=== PATIENT | female | born 1975 | race Caucasian/White ===

== ENCOUNTER 2021-01-01 23:25 | Emergency (ER) | payer BC ==
[2021-01-02] MEDS ORDERED: NA CHLORIDE 0.9% 500 ML ONE (00:25)
[2021-01-02] MEDS ORDERED: dexAMETHasone 10 MG/ML VIAL ONE (00:25)
[2021-01-02] MEDS ORDERED: LEVALBUTEROL 1.25 MG/3 ML NEB ONE (00:25)
[2021-01-02 00:38] LABS: Potassium 3.4 mmol/L (3.5-5.1)
[2021-01-02 00:40] LABS: Absolute Lymphocytes (CBC) 0.9 K/uL (0.7-4.9); Basophils % 0.7 % (0-1.3); Hematocrit 36.4 % (36.0-45.0); Lymphocytes % 31.3 % (15.3-44.8); MPV 9.7 fL (7.6-11.3); RBC Red Blood Cell Count 4.99 M/uL (3.86-4.86)
--- NOTE | 2021-01-02 00:53 | ER ---
Nurse's Notes [facility] Name: Giselle Chaudhari Age: 45 yrs Sex: Female : 1975 Arrival Date: 01/01/2021 Time: 23:32 Bed 13 Private MD: Diagnosis: Coronavirus infection, unspecified Presentation: 01/01 23:37 Chief complaint: Patient states: Im covid positive, Im just not feeling any better, sg having some shortness of breath that is worsening this evening. Coronavirus screen: Client presents with at least one sign or symptom that may indicate coronavirus-19. Standard/surgical mask placed on the client. Provider contacted for isolation considerations. Client reports previous positive COVID test result. Ebola Screen: Patient negative for fever greater than or equal to 101.5 degrees Fahrenheit, and additional compatible Ebola Virus Disease symptoms Patient denies exposure to infectious person. Patient denies travel to an Ebola-affected area in the 21 days before illness onset. No symptoms or risks identified at this time. Initial Sepsis Screen: Does the patient meet any 2 criteria? No. Patient's initial sepsis screen is negative. Does the patient have a suspected source of infection? No. Patient's initial sepsis screen is negative. Risk Assessment: Do you want to hurt yourself or someone else? Patient reports no desire to harm self or others. Onset of symptoms was January 01, 2021. Care prior to arrival: None. Transition of care: patient was not received from another setting of care. 23:37 Acuity: CARRIE 4 sg 23:37 Method Of Arrival: Ambulatory sg 23:51 Acuity: CARRIE 3 em EDUCATION REPORTER: 23:39 [facility] 12/04/2020 em Historical: - Allergies: 23:39 No Known Allergies; sg - PMHx: 23:39 None; sg - Immunization history:: Adult Immunizations not up to date. - Social history:: Smoking status: Patient reports the use of cigarette tobacco products. Screenin:40 Abuse screen: Denies threats or abuse. Nutritional screening: No deficits noted. em Tuberculosis screening: No symptoms or risk factors identified. Fall Risk None identified. Assessment: 23:39 General: Appears in no apparent distress. comfortable, Behavior is calm, cooperative, em appropriate for age, Reports fever for 1-2 days, feeling ill for 1-2 days, fatigue for 1-2 days. Pain: Denies pain. Neuro: Level of Consciousness is awake, alert, obeys commands, Oriented to person, place, time, situation. Cardiovascular: Denies chest pain, Capillary refill < 3 seconds Patient's skin is warm and dry. Rhythm is regular. Respiratory: Reports shortness of breath Airway is patent Respiratory effort is even, unlabored, Respiratory pattern is regular, symmetrical, Breath sounds are clear Denies cough. GI: Abdomen is round non-distended, Reports nausea, vomiting. Derm: Skin is intact, is healthy with good turgor, Skin is pink, warm \T\ dry. Musculoskeletal: Capillary refill < 3 seconds, Range of motion: intact in all extremities. 01/02 01:00 Reassessment: Patient appears in no apparent distress at this time. Patient and/or em family updated on plan of care and expected duration. Pain level reassessed. Patient is alert, oriented x 3, equal unlabored respirations, skin warm/dry/pink. Vital Signs: 01/01 23:39 BP 132 / 91; Pulse 96; Resp 20; Temp 97.8; Pulse Ox 96% on R/A; Weight 86.18 kg; Height em 5 ft. 4 in. (162.56 cm); Pain 0/10; 23:39 Body Mass Index 32.61 (86.18 kg, 162.56 cm) em ED Course: 23:32 Patient arrived in ED. am4 23:34 Denys Carl, RN is Primary Nurse. em 23:39 Triage completed. sg 23:40 Arm band placed on. sg 23:40 Patient has correct armband on for positive identification. Placed in gown. Bed in low em position. Call light in reach. Adult w/ patient. Pulse ox on. NIBP on. 23:44 Robert Pfeiffer PA is PHCP. [facility] 23:44 Shan Stern MD is Attending Physician. [facility] 01/02 00:00 Initial lab(s) drawn, by me, sent to lab. Inserted saline lock: 22 gauge in right em antecubital area, using aseptic technique. Blood collected. 00:23 Chest Single View XRAY In Process Unspecified. EDMS 01:08 No provider procedures requiring assistance completed. IV discontinued, intact, em bleeding controlled, No redness/swelling at site. Pressure dressing applied. Administered Medications: 00:12 Drug: Decadron - Dexamethasone 10 mg Route: IVP; Site: right antecubital; em 00:12 Drug: Xopenex (3) 1.25 mg Route: Inhalation; em 00:13 Drug: NS 0.9% 500 ml Route: IV; Rate: bolus; Site: right antecubital; em Outcome: 00:52 Discharge ordered by . carolynn 01:08 Discharged to home ambulatory. em 01:08 Condition: good 01:08 Discharge instructions given to patient, Instructed on discharge instructions, follow up and referral plans. medication usage, Demonstrated understanding of instructions, follow-up care, medications, Prescriptions given X 3. 01:12 Patient left the ED. em Signatures: Dispatcher [employer] Mic Martínez RN RN Robert Huerta PA PA jmm Munoz, Edgar, RN RN em Martinez, Ashley 4
--- NOTE | 2021-01-02 00:53 | EDPHYS ---
Physician Documentation [facility] Name: Giselle Chaudhari Age: 45 yrs Sex: Female : 1975 Arrival Date: 01/01/2021 Time: 23:32 Bed 13 Private MD: ANALILIA Physician Shan Stern HPI: 01/02 00:48 This 45 yrs old Female presents to ER via Ambulatory with complaints of jmm COVID+, Shortness Of Breath. 00:48 Onset: The symptoms/episode began/occurred gradually, 6 day(s) ago. Associated signs jmm and symptoms: Pertinent positives: shortness of breath. Modifying factors: The patient symptoms are alleviated by nothing, the patient symptoms are aggravated by lying down. The patient has not experienced similar symptoms in the past. Patient developed symptoms of covid 6 days ago and tested positive 2 days later. . 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 - Social history:: Smoking status: Patient reports the use of cigarette tobacco products. ROS: 01/02 00:48 Neck: Negative for injury, pain, and swelling, Respiratory: Negative for shortness of jmm breath, cough, wheezing, and pleuritic chest pain. Constitutional: Positive for body aches, chills. Respiratory: Positive for cough, orthopnea, shortness of breath. All other systems are negative. Exam: 00:48 Constitutional: This is a well developed, well nourished patient who is awake, alert, jmm and in no acute distress. Head/Face: atraumatic. Eyes: EOMI, no conjunctival erythema appreciated ENT: Moist Mucus Membranes Neck: Trachea midline, Supple Chest/axilla: Normal chest wall appearance and motion. Cardiovascular: Regular rate and rhythm. No edema appreciated Respiratory: Normal respirations, no respiratory distress appreciated Abdomen/GI: Non distended, soft Back: Normal ROM Skin: General appearance color normal MS/ Extremity: Moves all extremities, no obvious deformities appreciated, no edema noted to the lower extremities Neuro: Awake and alert, normal gait Psych: Behavior is normal, Mood is normal, Patient is cooperative and pleasant Vital Signs: 01/01 23:39 BP 132 / 91; Pulse 96; Resp 20; Temp 97.8; Pulse Ox 96% on R/A; Weight 86.18 kg; Height em 5 ft. 4 in. (162.56 cm); Pain 0/10; 23:39 Body Mass Index 32.61 (86.18 kg, 162.56 cm) em MDM: 23:45 Patient medically screened. [facility] 01/02 00:51 Data reviewed: vital signs, nurses notes. Counseling: I had a detailed discussion with [facility] the patient and/or guardian regarding: the historical points, exam findings, and any diagnostic results supporting the discharge/admit diagnosis, lab results, radiology results, the need for outpatient follow up, to return to the emergency department if symptoms worsen or persist or if there are any questions or concerns that arise at home. ED course: Patient is alert and non toxic in appearance in the ED. No signs of resp distress. Advised to follow up with pcp and otherwise given strict return precautions. Patient understood and agrees with the plan of care. . 01/01 23:53 Order name: CBC with Diff; Complete Time: 00:45 [facility] 01/01 23:53 Order name: BMP; Complete Time: 00:45 [facility] 01/01 23:52 Order name: Chest Single View XRAY [facility] 01/01 23:53 Order name: D-Dimer; Complete Time: 00:45 [facility] 01/01 23:53 Order name: Saline Lock; Complete Time: 00:06 [facility] Administered Medications: 00:12 Drug: Decadron - Dexamethasone 10 mg Route: IVP; Site: right antecubital; em 00:12 Drug: Xopenex (3) 1.25 mg Route: Inhalation; em 00:13 Drug: NS 0.9% 500 ml Route: IV; Rate: bolus; Site: right antecubital; em Disposition: 06:32 Co-signature as Attending Physician, Shan Stern MD I agree with the assessment and [facility] plan of care. Disposition: 01/02/21 00:52 Discharged to Home. Impression: Coronavirus infection, unspecified. - Condition is Stable. - Discharge Instructions: COVID-19. - Prescriptions for ivermectin 3 mg Oral tablet - take 6 tablet by ORAL route as directed one dose on day one and day three; 12 tablet. Prednisone 20 mg Oral Tablet - take 3 tablet by ORAL route once daily for 5 days; 15 tablet. Albuterol Sulfate 90 mcg/actuation - inhale 1-2 puff by INHALATION route every 4-6 hours; 1 Inhaler. - Medication Reconciliation Form, Thank You Letter, Antibiotic Education, Prescription Opioid Use form. - Follow up: Private Physician; When: 2 - 3 days; Reason: Recheck today's complaints, Continuance of care, Re-evaluation by your physician. - Notes: Please take 10,000 IU of vitamin D Daily, 1000 MG of NAC (N-Acetyl Cysteine)three times a day Signatures: Dispatcher [employer] EDMic Roman, ABHI RN Shan Kidd MD MD cha Mickail, Joel, PA PA jmm Munoz, Edgar, ABHI RN em Corrections: (The following items were deleted from the chart) 01:12 00:52 01/02/2021 00:52 Discharged to Home. Impression: Coronavirus infection, em unspecified. Condition is Stable. Forms are Medication Reconciliation Form, Thank You Letter, Antibiotic Education, Prescription Opioid Use. Follow up: Private Physician; When: 2 - 3 days; Reason: Recheck today's complaints, Continuance of care, Re-evaluation by your physician. carolynn
[2021-01-02 02:19] VITALS: BP 132/91; TEMP 97.8; O2SAT 96
--- NOTE | 2021-01-02 08:45 | RAD REPORT ---
EXAM DESCRIPTION: RAD - Chest Single View - 01/02/2021 12:23 am CLINICAL HISTORY Sob COMPARISON: None. FINDINGS: Single frontal radiograph view of the chest. Cardiomediastinal silhouette: Normal size and contour. Lungs: No consolidation, pneumothorax, or pleural effusion. Bones: No acute osseous abnormality. Low lung volumes. Upper abdomen: No abnormality identified. IMPRESSION: 1. No acute pulmonary process identified. 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 The interpreting radiologist is fully responsible for the content of the report.
== END 2021-01-02 01:12 | disposition home or self-care (01) ==
LOC: ER 23:25
DX: U07.1 COVID-19 (principal); F17.210 Nicotine dependence, cigarettes, uncomplicated
CPT/HCPCS: 85025; 80048; 36415; 85379; 71045; 96374; 99284; J1100; J7040

== ENCOUNTER 2021-01-03 15:08 | Emergency (ER) | payer BC ==
[2021-01-03 17:12] LABS: Basophils % 0.5 % (0-1.3); Hematocrit 35.2 % (36.0-45.0); Lymphocytes % 18.3 % (15.3-44.8); MPV 8.8 fL (7.6-11.3); RBC Red Blood Cell Count 4.89 M/uL (3.86-4.86)
[2021-01-03 17:25] LABS: Magnesium 2.1 mg/dL (1.8-2.4); Potassium 3.2 mmol/L (3.5-5.1)
[2021-01-03] MEDS ORDERED: DIAZEPAM 10 MG/2 ML INJ SYRINGE ONE ×3 (17:26→20:50)
--- NOTE | 2021-01-03 18:40 | RAD REPORT ---
EXAM DESCRIPTION: Gene Single View01/03/2021 6:01 pm CLINICAL HISTORY: sob COMPARISON: none FINDINGS: The lungs appear clear of acute infiltrate. The heart is normal size IMPRESSION: No acute abnormalities displayed
[2021-01-03] MEDS ORDERED: POTASSIUM CL SA 10 MEQ TAB PO ONE (19:48)
--- NOTE | 2021-01-03 20:39 | EDPHYS ---
Physician Documentation [facility] Name: Giselle Chaudhari Age: 45 yrs Sex: Female : 1975 Arrival Date: 01/03/2021 Time: 15:10 Bed 7 Private MD: Lonnie Garcia ED Physician Francesco Lozano HPI: 01/03 17:13 This 45 yrs old Female presents to ER via Ambulatory with complaints of jr8 Breathing Difficulty, spasms. 20:32 Patient stated that she was recently diagnosed with covid and sent home on medications. jr8 Today started to have what feels like upper abdominal, chest, and neck spasms. Denies cough or hiccups. Severity of symptoms: At their worst the symptoms were moderate in the emergency department the symptoms are unchanged. The patient has not experienced similar symptoms in the past. The patient has been recently seen by a physician:. Historical: - Allergies: 15:22 No Known Allergies; ll1 - PMHx: 15:22 None; ll1 - PSHx: 15:22 ; ll1 - Immunization history:: Flu vaccine is not up to date. - Social history:: Smoking status: Patient denies any tobacco usage or history of. ROS: 20:32 Eyes: Negative for injury, pain, redness, and discharge, ENT: Negative for injury, jr8 pain, and discharge, Neck: Negative for injury, pain, and swelling, Cardiovascular: Negative for chest pain, palpitations, and edema, Respiratory: Negative for shortness of breath, cough, wheezing, and pleuritic chest pain, Abdomen/GI: Negative for abdominal pain, nausea, vomiting, diarrhea, and constipation, Back: Negative for injury and pain, MS/Extremity: Negative for injury and deformity, Skin: Negative for injury, rash, and discoloration, Neuro: Negative for headache, weakness, numbness, tingling, and seizure. Exam: 20:32 Constitutional: This is a well developed, well nourished patient who is awake, alert, jr8 and in no acute distress. Cardiovascular: Regular rate and rhythm with a normal S1 and S2. No gallops, murmurs, or rubs. Normal PMI, no JVD. No pulse deficits. Respiratory: Lungs have equal breath sounds bilaterally, clear to auscultation and percussion. No rales, rhonchi or wheezes noted. No increased work of breathing, no retractions or nasal flaring. Abdomen/GI: Soft, non-tender, with normal bowel sounds. No distension or tympany. No guarding or rebound. No evidence of tenderness throughout. Back: No spinal tenderness. No costovertebral tenderness. Full range of motion. Skin: Warm, dry with normal turgor. Normal color with no rashes, no lesions, and no evidence of cellulitis. MS/ Extremity: Pulses equal, no cyanosis. Neurovascular intact. Full, normal range of motion. Neuro: Awake and alert, GCS 15, oriented to person, place, time, and situation. Cranial nerves II-XII grossly intact. Motor strength 5/5 in all extremities. Sensory grossly intact. Cerebellar exam normal. Normal gait. Vital Signs: 15:18 BP 123 / 85; Pulse 120; Resp 17; Temp 99.6; Pulse Ox 97% on R/A; Weight 86.18 kg; ll1 Height 5 ft. 4 in. (162.56 cm); Pain 3/10; 16:55 Pulse 109; Pulse Ox 98% on R/A; ss 19:00 BP 121 / 86; Pulse 91; Resp 18; Pulse Ox 98% on R/A; rv 20:00 BP 115 / 79; Pulse 93; Resp 18; Pulse Ox 96% on R/A; rv 20:35 BP 117 / 89; Pulse 93; Resp 16; Pulse Ox 97% on R/A; rv 15:18 Body Mass Index 32.61 (86.18 kg, 162.56 cm) ll1 MDM: 17:03 Patient medically screened. jr8 20:32 Data reviewed: vital signs, nurses notes, lab test result(s), radiologic studies, plain jr8 films. Data interpreted: Pulse oximetry: on room air is 98 %. Interpretation: normal. Counseling: I had a detailed discussion with the patient and/or guardian regarding: the historical points, exam findings, and any diagnostic results supporting the discharge/admit diagnosis, lab results, radiology results, the need for outpatient follow up, a family practitioner, to return to the emergency department if symptoms worsen or persist or if there are any questions or concerns that arise at home. ED course: Patient doing much better with the valium. Still not completely gone but markedly improved. Will send her home on limited supply of this. Told her to stop all medications except her vitamins on the off side chance this is side effect of one of them and that clinically she does not need those meds at this time for her COVID symptoms. Patient good with this and will f/u. Knows to come back if worse or something were to change . 01/03 16:56 Order name: CBC with Diff [facility] 01/03 16:56 Order name: Basic Metabolic Panel [facility] 01/03 16:56 Order name: Magnesium [facility] 01/03 16:56 Order name: CBC with Automated Diff; Complete Time: 18:09 EDMS 01/03 16:56 Order name: Basic Metabolic Panel; Complete Time: 18:09 EDMS 01/03 17:25 Order name: Magnesium; Complete Time: 18:09 EDMS 01/03 16:56 Order name: IV; Complete Time: 17:06 [facility] 01/03 16:56 Order name: XRAY Chest (1 view) [facility] 01/03 18:41 Order name: RAD; Complete Time: 19:12 EDMS Administered Medications: 17:15 Drug: Valium 2 mg Route: IVP; Site: left upper arm; ss 18:30 Follow up: Response: No adverse reaction; Pain is decreased ss 19:35 Drug: Potassium Chloride 40 mEq Route: PO; rv 20:36 Follow up: Response: No adverse reaction rv 19:35 Drug: Valium 5 mg Route: IVP; Site: left upper arm; rv 20:36 Follow up: Response: No adverse reaction; Marked relief of symptoms rv 20:36 Drug: Valium 5 mg Route: IVP; Site: left antecubital; rv Disposition: 01/04 07:22 Co-signature as Attending Physician, Francesco Lozano MD I agree with the assessment and kdr plan of care. Disposition: 01/03/21 20:37 Discharged to Home. Impression: Muscle spasm. - Condition is Stable. - Discharge Instructions: Muscle Cramps and Spasms. - Prescriptions for Valium 5 mg Oral Tablet - take 1 tablet by ORAL route every 8 hours As needed; 20 tablet. - Medication Reconciliation Form, Thank You Letter, Antibiotic Education, Prescription Opioid Use form. - Follow up: Lonnie Garcia MD; When: 2 - 3 days; Reason: Recheck today's complaints, Continuance of care, Re-evaluation by your physician. - Problem is new. - Symptoms have improved. Signatures: Dispatcher [employer] EDMS Francesco Lozano MD MD kdr Smirch, Shelby, RN RN Kiel Bosch PA PA jr8 Enoch Chanel RN RN rv Alpesh Flanagan RN RN ll1 Corrections: (The following items were deleted from the chart) 01/03 20:51 20:37 01/03/2021 20:37 Discharged to Home. Impression: Muscle spasm. Condition is rv Stable. Forms are Medication Reconciliation Form, Thank You Letter, Antibiotic Education, Prescription Opioid Use. Follow up: Lonnie Garcia; When: 2 - 3 days; Reason: Recheck today's complaints, Continuance of care, Re-evaluation by your physician. Problem is new. Symptoms have improved. jr8
--- NOTE | 2021-01-03 20:39 | ER ---
Nurse's Notes [facility] Name: Giselle Chaudhari Age: 45 yrs Sex: Female : 1975 Arrival Date: 01/03/2021 Time: 15:10 Bed 7 Private MD: Lonnie Garcia Diagnosis: Muscle spasm Presentation: 01/03 15:18 Chief complaint: Patient states: Here Friday night for SOB, breathing difficulty. ll1 Started having bronchial spasms Friday, worse with coughing/talking. Covid positive since 12/30. Coronavirus screen: Client denies travel out of the [place] in the last 14 days. cough unrelated to allergies, difficulty breathing, Client presents with at least one sign or symptom that may indicate coronavirus-19. Standard/surgical mask placed on the client. Ebola Screen: Patient denies travel to an Ebola-affected area in the 21 days before illness onset. Initial Sepsis Screen: Does the patient meet any 2 criteria? HR > 90 bpm. No. Patient's initial sepsis screen is negative. Does the patient have a suspected source of infection? Yes: Productive cough/pneumonia. Risk Assessment: Do you want to hurt yourself or someone else? Patient reports no desire to harm self or others. Onset of symptoms was December 28, 2020. 15:18 Method Of Arrival: Ambulatory [facility] 15:18 Acuity: CARRIE 3 ll1 Triage Assessment: 20:35 General: Appears comfortable. Respiratory: the patient has mild shortness of breath. rv Historical: - Allergies: 15:22 No Known Allergies; ll1 - PMHx: 15:22 None; ll1 - PSHx: 15:22 ; ll1 - Immunization history:: Flu vaccine is not up to date. - Social history:: Smoking status: Patient denies any tobacco usage or history of. Screenin:55 Abuse screen: Denies threats or abuse. Denies injuries from another. Nutritional ss screening: No deficits noted. Tuberculosis screening: Never had TB. Fall Risk None identified. Assessment: 16:55 General: Appears uncomfortable, Behavior is calm, cooperative, Reports feeling ill for ss 2-3 days. Pain: Complains of pain in abdomen Pain currently is 3 out of 10 on a pain scale. Quality of pain is described as "sore, like I've been working out." Pain began 2-3 days ago. Is continuous. Neuro: Level of Consciousness is awake, alert, obeys commands, Oriented to person, place, time, situation, Magistrate Judge are equal bilaterally Facial symmetry appears normal. Cardiovascular: Capillary refill < 3 seconds is brisk in bilateral fingers Patient's skin is warm and dry. Rhythm is sinus tachycardia. Respiratory: Reports When talking, patient reports "spasms" that causes her to grunt and do a crunch with her abd muscles. Airway is patent Respiratory effort is even, unlabored, Respiratory pattern is regular, symmetrical, Breath sounds are clear bilaterally. GI: No signs and/or symptoms were reported involving the gastrointestinal system. Patient currently denies diarrhea, intolerance of food, vomiting. : No signs and/or symptoms were reported regarding the genitourinary system. EENT: Nares are clear. Derm: Skin is intact, is healthy with good turgor, Skin is dry, Skin is pink, warm \\T\\ dry. normal. Musculoskeletal: Circulation, motion, and sensation intact. Range of motion: intact in all extremities, Swelling absent. 17:55 Reassessment: Patient appears in no apparent distress at this time. No changes from ss previously documented assessment. 18:55 Reassessment: Patient appears in no apparent distress at this time. No changes from ss previously documented assessment. Patient is alert, oriented x 3, equal unlabored respirations, skin warm/dry/pink. Vital Signs: 15:18 BP 123 / 85; Pulse 120; Resp 17; Temp 99.6; Pulse Ox 97% on R/A; Weight 86.18 kg; ll1 Height 5 ft. 4 in. (162.56 cm); Pain 3/10; 16:55 Pulse 109; Pulse Ox 98% on R/A; ss 19:00 BP 121 / 86; Pulse 91; Resp 18; Pulse Ox 98% on R/A; rv 20:00 BP 115 / 79; Pulse 93; Resp 18; Pulse Ox 96% on R/A; rv 20:35 BP 117 / 89; Pulse 93; Resp 16; Pulse Ox 97% on R/A; rv 15:18 Body Mass Index 32.61 (86.18 kg, 162.56 cm) ll1 ED Course: 15:10 Patient arrived in ED. am2 15:10 Lonnie Garcia MD is Private Physician. am2 15:21 Triage completed. ll1 15:22 Arm band placed on. ll1 16:43 [facility]. jr8 16:43 Francesco Lozano MD is Attending Physician. jr8 16:44 Emmy Bustamante, ABHI is Primary Nurse. ss 16:55 Patient has correct armband on for positive identification. Bed in low position. Call ss light in reach. Side rails up X 1. 16:55 Patient maintains SpO2 saturation greater than 95% on room air. ss 17:06 Inserted saline lock: 20 gauge in left upper arm, using aseptic technique. Blood ss collected. 18:17 Magnesium Sent. sv 18:17 Basic Metabolic Panel Sent. sv 18:17 CBC with Diff Sent. sv 20:35 No provider procedures requiring assistance completed. rv 20:37 Lonnie Garcia MD is Referral Physician. jr8 20:49 IV discontinued, intact, bleeding controlled, No redness/swelling at site. Pressure rv dressing applied. Administered Medications: 17:15 Drug: Valium 2 mg Route: IVP; Site: left upper arm; ss 18:30 Follow up: Response: No adverse reaction; Pain is decreased ss 19:35 Drug: Potassium Chloride 40 mEq Route: PO; rv 20:36 Follow up: Response: No adverse reaction rv 19:35 Drug: Valium 5 mg Route: IVP; Site: left upper arm; rv 20:36 Follow up: Response: No adverse reaction; Marked relief of symptoms rv 20:36 Drug: Valium 5 mg Route: IVP; Site: left antecubital; rv Outcome: 20:37 Discharge ordered by . jr8 20:49 Discharged to home via wheelchair. rv 20:49 Condition: improved 20:49 Discharge instructions given to patient, Instructed on discharge instructions, follow up and referral plans. medication usage, Demonstrated understanding of instructions, follow-up care, medications, Prescriptions given X 1. 20:51 Patient left the ED. rv Signatures: Tanya Cristina RN RN Emmy Bustamante, ABHI RN Kiel Spann PA PA jr8 Ellen Smith am2 Enoch Chanel RN RN rv Alpesh Flanagan RN RN ll1
[2021-01-04 10:24] VITALS: BP 117/89; TEMP 99.6; O2SAT 97
== END 2021-01-03 20:51 | disposition home or self-care (01) ==
LOC: ER 15:08
DX: M62.838 Other muscle spasm (principal); Z86.16 Personal history of COVID-19
CPT/HCPCS: 85025; 80048; 36415; 83735; 71045; 99285; J3360 ×3

== ENCOUNTER 2021-03-20 09:50 | Day surgery (SDC) | payer BC ==
[2021-03-15 10:22] LABS: Absolute Lymphocytes (CBC) 1.3 K/uL (0.7-4.9); Basophils % 0.9 % (0-1.3); Hematocrit 39.7 % (36.0-45.0); Lymphocytes % 26.1 % (15.3-44.8); MPV 9.2 fL (7.6-11.3); RBC Red Blood Cell Count 5.26 M/uL (3.86-4.86)
[2021-03-15 10:35] LABS: Urine Appearance CLEAR (Clear); Urine Bilirubin NEGATIVE (Negataive); Urine Blood TRACE (Negative); Urine Color YELLOW (Yellow); Urine Glucose NEGATIVE (Negative); Urine Protein NEGATIVE (Negative); Urine Specific Gravity 1.025 (1.005-1.030); Urine Urobilinogen 0.2 mg/dL (0.2-1.0); Urine pH 5.5 (5.0-7.0)
[2021-03-15 10:51] LABS: Urine Microscopic Reflex ORDER UMIC
[2021-03-15 10:52] LABS: Urine Bacteria NONE SEEN /HPF (<20); Urine Mucus MOD /HPF (NONE SEEN); Urine RBC <5 /HPF (NONE SEEN)
[2021-03-20] MEDS ORDERED: Ringers Lactate 1,000 ML IV ONE ×2 (10:27→14:36)
[2021-03-20] MEDS ORDERED: SCOPOLAMINE HYDROBROMIDE PATCH TD ONE (10:27)
[2021-03-20] MEDS ORDERED: MIDAZOLAM HCL 2 MG/2 ML INJ ONE (12:59)
[2021-03-20] MEDS ORDERED: propofoL 200 MG/20 ML VIAL IV ONE (13:00)
[2021-03-20] MEDS ORDERED: LIDOCAINE 2% MPF 5 ML VIAL ONE (13:00)
[2021-03-20] MEDS ORDERED: ROCURONIUM 50 MG/5 ML VIAL IV ONE (13:00)
[2021-03-20] MEDS ORDERED: FENTANYL CITR 100 MCG/2 ML ONE ×2 (13:00→14:35)
[2021-03-20] MEDS ORDERED: ONDANSETRON 4 MG/2 ML VIAL ONE (13:04)
[2021-03-20] MEDS ORDERED: BUPIVACAINE 0.25% PF 30 ML VIAL ONE (13:17)
[2021-03-20] MEDS ORDERED: dexAMETHasone 10 MG/ML VIAL ONE (13:19)
[2021-03-20] MEDS: CEFAZOLIN/SWI 1gm 2 GM/20 ML SYR ONE ×3 (13:20→13:50)
[2021-03-20] MEDS ORDERED: KETOROLAC 30 MG/ML INJ ONE (14:21)
[2021-03-20] MEDS ORDERED: NA CHLORIDE 0.9% 1,000 ML ONE (14:37)
[2021-03-20] MEDS: MEPERIDINE HCL 25 MG/ML SYR ONE ×2 (15:59→16:04)
[2021-03-20] MEDS: HYDROMORPHONE HCL 1 MG/ML INJ ONE ×2 (16:08→16:13)
[2021-03-20] MEDS ORDERED: IBUPROFEN 200 MG TAB PO ONE (17:05)
[2021-03-20 17:44] VITALS: BP 122/60; TEMP 97; O2SAT 97
--- NOTE | 2021-03-20 23:05 | OP ---
Date of Procedure: 03/20/2021 Surgeon: Emilee Sanches MD Network Architect: Yanni Landrum. Preoperative Diagnoses: Menorrhagia, anemia and dysmenorrhea. Postoperative Diagnoses: Menorrhagia, anemia and dysmenorrhea and endometriosis, right ovarian corrie s small, possible fibroma. Procedures Performed: 1.Diagnostic hysteroscopy, endometrial ablation with NovaSure. 2.Diagnostic laparoscopy, bilateral salpingectomy. 3.Laparoscopy, endometriosis excision, 1 implant fulgurated. 4.Right ovarian masses excision for biopsy, most likely ovarian fibroma. Anesthesia: General endotracheal. Estimated Blood Loss: Minimal. Complications: No complications. Drains: No drains. Condition: Stable. Specimens: Bilateral tubes, endometriosis from right lateral wall and right ovarian biopsies, which are possible fibroma of the ovary. Ablation was done without any problems. Her cavity length was 5 cm, cavity width 3.8 cm, power setti ng 105 pelletier, time of ablation 1 minute and 14 seconds. Excellent ablation effect in the global endo metrial cavity. Endometriosis found in the right lateral wall between the ureter and the uterosacral ligament, and then on the left side, 1 implant in the lateral wall. On the superficial ovarian caps ule, there were 2 firm masses that were consistent with fibromatous change, most likely fibroma, so, biopsies were taken by excising them. No other abnormalities were noted on the appendix, liver, diaphragm, other peritoneal surfaces, oment um. Indications: The patient is a 45-year-old female who presented with significant bleeding, anemia, mo st likely from menorrhagia. Her endometrial ultrasound and sampling were performed. Endometrium neg ative for atypia or malignancy. So, she was offered the options of an endometrial ablation. The alt ernatives were medical therapy using a depot medroxyprogesterone or an IUD. The patient wanted to pr oceed with an ablation and removal of her tubes. She also has significant dysmenorrhea and evaluatin g possibility of endometriosis was discussed and excision of endometriosis at the same time. All the se were reviewed with the patient. She was consented in the preoperative area and consent was re-louis ified. Questions and answers were done to the satisfaction of the patient and her . Procedure In Detail: She was then brought to the operating room. 2 g of Ancef were given. She was placed in a supine fashion. General anesthesia was given. Placed in dorsal lithotomy position after that and pelvic exam was performed. Abdomen, vulva, vagina, and perineum were prepped and draped in a sterile fashion. Jean was placed to drain the bladder. Speculum was placed to expose the cervix . Anterior lip was grasped with 2 Allis clamps. Diagnostic SlimLine hysteroscope was introduced int o the uterine cavity and direct measurements of the cervix and the uterine cavity were conducted. Th lili settings were entered into the NovaSure generator. Then, ablation was done after priming the dev ice and deploying the device into the uterine cavity and deploying the fan. Occlusion was done with the occluder, passed the cavity integrity test, went on to an ablation cycle uninterrupted 1 minute a nd 14 seconds, settings as above. Device was un-deployed in the usual fashion and removed. SlimLine hysteroscope was introduced into the uterine cavity and we verified excellent ablation effect in the global endometrial cavity. Scope was pulled out. Diagnostic VCare was introduced into the uterus f or uterine manipulation and this area was draped. A 1 cm infraumbilical incision was made on the ski n in a semilunar fashion along the infraumbilical fold. Then, incision was made with an 11 blade. S ubcutaneous tissues were dissected and umbilical hernia was found. Here the umbilical hernia sac was reduced into the peritoneal cavity. There was preperitoneal fat and no other contents. Then, the f ascia was dissected identifying all the edges. Incision in the fascial plane was followed up to find all the edges, and then 0 Vicryl sutures were used to tag the edges on both sides and subcutaneous t issues were dissected away from the fascia exposing the edges very well. Once this was done, periton eal cavity was already exposed. S retractors introduced. Adequate insufflation was done. Then site of entry was checked, unremarkable. Upper abdominal surfaces, liver, gallbladder, diaphragm, omentu m, all without any implants of endometriosis. Patient was placed in Trendelenburg. Appendix normal. Pelvic cavity with endometriosis as dictated in the findings above. 5 suprapubic left lower quadra nt and right lower quadrant ports were placed under direct vision after injecting with Marcaine at th e fascia and the skin. Then went down to remove the tubes with the help of the LigaSure, retrieved a nd handed out. There were 2 fibroma on the right ovary, which were excised with the help of the mono polar needle and cauterized with the bipolar [place] tip. Then endometriosis on the left side of th e endometrium appeared to be significantly adhered to the underlying tissue. There was some bleeding as I attempted to open the peritoneum and strip the peritoneum, so cauterization was done and the im plant was fulgurated. This was slightly lateral to the ureter. Then, there were no other implants a round in the area. I went down to check the opposite side, and here implants were seen medial to the ureter coming over to the uterosacral. The peritoneum was opened superior to the ureter and incisio n was carried across to the uterosacral staying well above it and then dissecting the uterus laterall y. The peritoneum was stripped and excised. This was done with the help of the LigaSure and scissor s, and once all this was done, there was good hemostasis. Thorough irrigation and suction were perfo rmed. Epiploicae had some bleeding when they were used for retraction. There was a cauterizer with the bipolar tip. I went on to place Interceed after thorough irrigation and suction in all the disse ction sites on the ovary so that there would be no adhesions to the posterior masterson. Once this was d one, there was a small implant possibly on the uterine serosa, and this was cauterized with the bipol ar tip. The trocars were removed under direct vision after gas was desufflated. Then the fascial ed ges were then visualized and held with Allis clamps, placed two 0 PDS sutures in [id number] x2 t o close the entire fascial defect. The umbilical stump that was dissected was sutured back to the fa scia with the help of 3-0 chromic, then 2 other sutures were placed to reshape the umbilicus and 4-0 Vicryl to close the subcuticular layer. Then, 3-0 chromic was used to close the left lower quadrant skin incision and dressed with 4-0 Vicryl in interrupted fashion. Jean and uterine manipulator were removed. Instrument, needle, and sponge counts were correct at the end of the case. EBL was minima l. Patient tolerated the procedure well. She was recovered from anesthesia in the OR and taken to [facility] in stable condition. She has a 1-week followup with me and prescriptions were called into the pharma cy. GRZEGORZ/PRASANTH Voice ID: [id number] Report ID: [id number]
== END 2021-03-20 17:30 | disposition home or self-care (01) ==
LOC: OR 09:50
PROVIDERS: ATTEND Obstetrics & Gynecology
PROC: 0UT74ZZ Resection of Bilateral Fallopian Tubes, Percutaneous Endoscopic Approach (ICD-10-PCS; 2021-03-20)
PROC: 0DBW4ZZ Excision of Peritoneum, Percutaneous Endoscopic Approach (ICD-10-PCS; 2021-03-20)
PROC: 0UB04ZZ Excision of Right Ovary, Percutaneous Endoscopic Approach (ICD-10-PCS; 2021-03-20)
PROC: 0U5B8ZZ Destruction of Endometrium, Via Natural or Artificial Opening Endoscopic (ICD-10-PCS; principal; 2021-03-20 11:15)
DX: N92.0 Excessive and frequent menstruation with regular cycle (principal); N94.6 Dysmenorrhea, unspecified; D64.9 Anemia, unspecified; N80.3 Endometriosis of pelvic peritoneum; N83.9 Noninflammatory disorder of ovary, fallopian tube and broad ligament, unspecified; D27.0 Benign neoplasm of right ovary; N94.89 Other specified conditions associated with female genital organs and menstrual cycle; Z20.822 Contact with and (suspected) exposure to COVID-19
CPT/HCPCS: 85025; 36415; 86900; 86850; 81025; 86901; 88305; 58353; 58661; 58662 ×2; U0002; J2704; J2250; J3010 ×2; J1100; J2175; J1170; J0690; J7120 ×2; J7030; J2405; 81003; 81015